=== PATIENT | male | born 1985 | race Asian ===

== ENCOUNTER 2020-02-11 14:58 | Emergency (ER) | payer SELFPAY ==
[2020-02-11] MEDS ORDERED: LIDOCAINE 1% MPF 5 ML VIAL ONE (15:40)
--- NOTE | 2020-02-11 15:50 | EDPHYS ---
Physician Documentation [facility] Name: Kei Mclain Age: 34 yrs Sex: Male : 1985 Arrival Date: 02/11/2020 Time: 15:01 Bed 27 Private MD: ED Physician Jorge Ritchie HPI: 02/10 15:47 This 34 yrs old Male presents to ER via Ambulatory with complaints of [place] in rn Head. 15:47 The patient or guardian reports the patient has a suspected foreign body, scalp. The rn reported likely foreign body is a fishhook. Onset: The symptoms/episode began/occurred just prior to arrival. Current symptoms: foreign body sensation. The patient has not experienced similar symptoms in the past. New hook but was in water, triple hook, cut other hooks off prior to coming in.. Historical: - Home Meds: 16:24 Unable to obtain [Active]; jd3 - PMHx: 16:24 Unable to obtain; jd3 - PSHx: 16:24 Unable to obtain; jd3 - Immunization history:: Adult Immunizations unknown. - Family history:: not pertinent. - Social history:: Smoking status: unknown. - Hospitalizations: : No recent hospitalization is reported. ROS: 15:47 Constitutional: Negative for fever, chills, and weight loss, Skin: + fishhook in scalp rn Exam: 15:47 Constitutional: This is a well developed, well nourished patient who is awake, alert, rn and in no acute distress. Head/Face: Normocephalic, single partially cut fish hook right parietal scalp, no bleeding Vital Signs: 16:22 BP 119 / 80; Pulse 74; Resp 16 S; Temp 98.0(TE); Pulse Ox 99% on R/A; jd3 Procedures: 15:47 Foreign Body Removal: a fishhook, from the right parietal scalp, by using a hemostat, rn needle, Dressinx4s were used to dress the wound, The patient tolerated the removal well. MDM: 15:17 Patient medically screened. rn 15:47 Data reviewed: vital signs, nurses notes, and as a result, I will discharge patient. rn Counseling: I had a detailed discussion with the patient and/or guardian regarding: the historical points, exam findings, and any diagnostic results supporting the discharge/admit diagnosis, the need for outpatient follow up, to return to the emergency department if symptoms worsen or persist or if there are any questions or concerns that arise at home. Response to treatment: the patient's symptoms have resolved after treatment, and as a result, I will discharge patient. Special discussion: I discussed with the patient/guardian in detail that at this point there is no indication for admission to the hospital. It is understood, however, that if the symptoms persist or worsen the patient needs to return immediately for re-evaluation. 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 Exp: jd3 08/15/2022. Lot #: [id number]. } Route: IM; Site: left deltoid; 16:24 Follow up: Response: No adverse reaction jd3 Disposition: 02/11/20 15:49 Discharged to Home. Impression: Foreign body in scalp, fish hook. - Condition is Stable. - Discharge Instructions: Foreign Body. - Prescriptions for Doxycycline Hyclate 100 mg Oral Tablet - take 1 tablet by ORAL route once daily; 10 tablet. - Medication Reconciliation Form, Thank You Letter, Antibiotic Education, Prescription Opioid Use form. - Follow up: Private Physician; When: As needed; Reason: Recheck today's complaints, Re-evaluation by your physician. - Problem is new. - Symptoms are resolved. Signatures: Jorge Ritchie MD MD rn Davies, Jonathon, RN RN jd3 Corrections: (The following items were deleted from the chart) 16:24 15:49 02/11/2020 15:49 Discharged to Home. Impression: Foreign body in scalp, fish jd3 hook. Condition is Stable. Forms are Medication Reconciliation Form, Thank You Letter, Antibiotic Education, Prescription Opioid Use. Follow up: Private Physician; When: As needed; Reason: Recheck today's complaints, Re-evaluation by your physician. Problem is new. Symptoms are resolved. rn
--- NOTE | 2020-02-11 15:50 | ER ---
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 Coronavirus screen: At this time, the client does not indicate any symptoms associated with coronavirus-19. Ebola Screen: Patient negative for fever greater than or equal to 101.5 degrees Fahrenheit, and additional compatible Ebola Virus Disease symptoms Patient denies exposure to infectious person. Patient denies travel to an Ebola-affected area in the 21 days before illness onset. No symptoms or risks identified at this time. Initial Sepsis Screen: Does the patient meet any 2 criteria? No. Patient's initial sepsis screen is negative. Does the patient have a suspected source of infection? No. Patient's initial sepsis screen is negative. Risk Assessment: Do you want to hurt yourself or someone else? Patient reports no desire to harm self or others. 15:36 Method Of Arrival: Ambulatory iw 15:36 Acuity: DAYAMI 4 iw 15:38 Onset of symptoms was February 11, 2020. iw Historical: - Home Meds: 16:24 Unable to obtain [Active]; jd3 - PMHx: 16:24 Unable to obtain; jd3 - PSHx: 16:24 Unable to obtain; jd3 - Immunization history:: Adult Immunizations unknown. - Family history:: not pertinent. - Social history:: Smoking status: unknown. - Hospitalizations: : No recent hospitalization is reported. Screenin:22 Abuse screen: Denies threats or abuse. Nutritional screening: No deficits noted. jd3 Tuberculosis screening: No symptoms or risk factors identified. Fall Risk Ambulatory Aid- None/Bed Rest/Nurse Assist (0 pts). Gait- Normal/Bed Rest/Wheelchair (0 pts) Mental Status- Oriented to own ability (0 pts). Total Cotter Fall Scale indicates No Risk (0-24 pts). Assessment: 15:45 General: Appears in no apparent distress. comfortable, Behavior is calm, cooperative, jd3 appropriate for age. Pain: Complains of pain in head Quality of pain is described as stinging. Neuro: Level of Consciousness is awake, alert, obeys commands, Oriented to person, place, time, situation. Cardiovascular: Denies chest pain, Capillary refill < 3 seconds Patient's skin is warm and dry. Respiratory: Airway is patent Respiratory effort is even, unlabored, Respiratory pattern is regular, symmetrical. GI: No signs and/or symptoms were reported involving the gastrointestinal system. : No signs and/or symptoms were reported regarding the genitourinary system. EENT: No signs and/or symptoms were reported regarding the EENT system. Derm: Skin is intact, Skin is dry, Skin is normal, Skin temperature is warm fishhook noted to being in pt's right side of head, scalp. no bleeding noted. Musculoskeletal: Circulation, motion, and sensation intact. Range of motion: intact in all extremities. 15:58 Reassessment: provider at bedside removing fishhook. jd3 16:19 Reassessment: Patient appears in no apparent distress at this time. Patient and/or jd3 family updated on plan of care and expected duration. Pain level reassessed. Patient is alert, oriented x 3, equal unlabored respirations, skin warm/dry/pink. Patient states feeling better. Vital Signs: 16:22 BP 119 / 80; Pulse 74; Resp 16 S; Temp 98.0(TE); Pulse Ox 99% on R/A; jd3 ED Course: 15:01 Patient arrived in ED. ds1 15:17 Jorge Ritchie MD is Attending Physician. rn 15:30 Mario Bates RN is Primary Nurse. jd3 15:38 Triage completed. iw 15:38 Arm band placed on. iw 16:22 Patient has correct armband on for positive identification. Bed in low position. Call jd3 light in reach. Side rails up X 1. Pulse ox on. NIBP on. 16:22 No provider procedures requiring assistance completed. Patient did not have IV access jd3 during this emergency room visit. 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 Exp: jd3 08/15/2022. Lot #: [id number]. } Route: IM; Site: left deltoid; 16:24 Follow up: Response: No adverse reaction jd3 Outcome: 15:49 Discharge ordered by . rn 16:23 Discharged to home ambulatory, with family. jd3 16:23 Condition: stable 16:23 Discharge instructions given to patient, family, Instructed on discharge instructions, follow up and referral plans. medication usage, Demonstrated understanding of instructions, follow-up care, medications, Prescriptions given X 1. 16:24 Patient left the ED. jd3 Signatures: Elvia Carroll ds1 Jael Bacon RN RN iw Nieto, Roman, MD MD rn Davies, Jonathon, RN RN jroyce Corrections: (The following items were deleted from the chart) 16: 16:00 General: Appears in no apparent distress. comfortable, Behavior is calm, jd3 cooperative, appropriate for age, jd3 16: 16:00 Pain: Complains of pain in head Quality of pain is described as stinging, jd3 jd3 16: 16:00 Neuro: Level of Consciousness is awake, alert, obeys commands, Oriented to jd3 person, place, time, situation, jd3 16: 16:00 Cardiovascular: Denies chest pain, Capillary refill < 3 seconds Patient's skin is jd3 warm and dry. jd3 16: 16:00 Respiratory: Airway is patent Respiratory effort is even, unlabored, Respiratory jd3 pattern is regular, symmetrical, jd3 16: 16:00 GI: No signs and/or symptoms were reported involving the gastrointestinal system. jd3 jd3 16: 16:00 : No signs and/or symptoms were reported regarding the genitourinary system. [id number] 16: 16:00 EENT: No signs and/or symptoms were reported regarding the EENT system. jd3 jd3 16: 16:00 Derm: Skin is intact, Skin is dry, Skin is normal, Skin temperature is warm jd3 fishhook noted to being in pt's right side of head, scalp. no bleeding noted jd3 16: 16:00 Musculoskeletal: Circulation, motion, and sensation intact. Range of motion: jd3 intact in all extremities, jd3
[2020-02-11] MEDS ORDERED: TETANUS & DIPHTHERIA TOX,ADULT 0.5 ML VIAL ONE (16:09)
[2020-02-11 17:34] VITALS: BP 119/80; TEMP 98; O2SAT 99
== END 2020-02-11 16:24 | disposition home or self-care (01) ==
LOC: ER 14:58
DX: S00.05XA Superficial foreign body of scalp, initial encounter (principal); Z23 Encounter for immunization
CPT/HCPCS: 90471; 90714; 99283